=== PATIENT | female | born 2000 | race African-American/Black ===

== ENCOUNTER 2022-02-02 09:21 | Emergency (ER) | payer OTHER, MEDICAID ==
[~2022-02-02] VITALS: Ht 152.4 cm; Wt 50.0 kg
[2022-02-02 14:52] LABS: BASOPHILS % 0.8 % (0.0-2.0); HEMATOCRIT. 33.3 % (36.0-48.0); HEMOGLOBIN. 10.7 g/dL (12.0-16.0); LYMPHOCYTES % 26.2 % (20.0-50.0); MEAN CORPUSCULAR HEMOGLOBIN 23.3 pg (28.0-32.0); MEAN CORPUSCULAR VOLUME 72.3 fL (81.0-99.0); MEAN PLATELET VOLUME 9.7 fl (7.4-10.4); MONOCYTES % 8.7 % (2.0-8.0); NEUTROPHILS % 62.3 % (40.0-76.0); PLATELET 237 x1000/uL (130-400); RED BLOOD CELL COUNT 4.61 mill/uL (4.2-5.4); RED CELL DISTRIBUTION WIDTH 13.3 % (11.6-14.6)
[2022-02-02 15:05] LABS: CHLORIDE 107 mEq/L (98-107)
[2022-02-02 15:27] LABS: B-HCG QUANTITATIVE 172748 mIU/mL (<3)
[2022-02-02 16:40] VITALS: BP 127/75
== END 2022-02-02 16:41 | disposition home or self-care (01) ==
LOC: ER 09:21
DX: O46.91 Antepartum hemorrhage, unspecified, first trimester (principal); Z3A.09 9 weeks gestation of pregnancy
CPT/HCPCS: 36415; 76801; 80048; 84702; 85025; 86850; 86900; 99284